=== PATIENT | male | born 1990 | race Caucasian/White ===

== ENCOUNTER 2019-02-27 19:00 | Emergency (ER) | payer SELFPAY ==
[2019-02-27 19:36] VITALS: BP 131/78
--- NOTE | 2019-02-27 20:05 | UC ---
Abdominal Pain Male HPI - HPI Summary HPI Summary: 2 DAYS OF INTERMITTENT LOWER ABDOMINAL PAIN. YESTERDAY NOTED SOME BLOODY MUCUS PER RECTUM. NO DIARRHEA. NO NAUSEA/VOMITING. NO FEVER. NO RECENT TRAVEL OR UNUSUAL FOODS. - History of Current Complaint Chief Complaint: UCGI Stated Complaint: ABDOMINAL PAIN Time Seen by Provider: 02/27/19 19:36 Hx Obtained From: Patient Onset/Duration: Gradual Onset, Lasting Days, Still Present Timing: Constant Severity Initially: Moderate Severity Currently: Moderate Pain Intensity: 2 Pain Scale Used: 0-10 Numeric Location: Suprapubic Radiates: No Character: Cramping, Sharp Aggravating Factor(s): Nothing Associated Signs And Symptoms: Positive: Constipation, Blood in Stool. Negative : Fever, Urinary Symptoms, Nausea, Vomiting - Allergies/Home Medications Allergies/Adverse Reactions: Allergies Allergy/AdvReac Type Severity Reaction Status Date / Time No Known Allergies Allergy Verified 01/15/15 23:10 Home Medications: Home Medications Docusate Sodium 100 mg PO ONCE PRN 02/27/19 [History Confirmed 02/27/19] PMH/Surg Hx/FS Hx/Imm Hx GI/ History: Kidney Stones - Surgical History Surgical History: Yes Surgery Procedure, Year, and Place: HERNIA REPAIR. appendicitis - Family History Known Family History: Positive: Non-Contributory - Social History Alcohol Use: Occasionally Substance Use Type: None Smoking Status (MU): Never Smoked Tobacco Review of Systems All Other Systems Reviewed And Are Negative: Yes Constitutional: Positive: Negative Respiratory: Positive: Negative Cardiovascular: Positive: Negative Gastrointestinal: Positive: Abdominal Pain, Other - BLOODY MUCUS PER RECTUM Genitourinary: Positive: Negative Physical Exam Triage Information Reviewed: Yes Appearance: Well-Appearing, No Pain Distress, Well-Nourished Vital Signs: Initial Vital Signs Temp 99.9 F 02/27/19 19:23 Pulse 72 02/27/19 19:23 Resp 18 02/27/19 19:23 BP 131/78 02/27/19 19:23 Pulse Ox 98 02/27/19 19:23 Vital Signs Reviewed: Yes Eyes: Positive: Conjunctiva Clear ENT: Positive: Hearing grossly normal Neck: Positive: Supple Respiratory Exam: Normal Cardiovascular Exam: Normal Abdomen Description: Positive: Soft, Other: - TTP LOWER ABDOMEN. NO REBOUND OR RIGIDITY. Negative: CVA Tenderness (R), CVA Tenderness (L), Distended, Guarding Bowel Sounds: Positive: Present Musculoskeletal: Positive: No Edema Neurological: Positive: Alert Psychological: Positive: Age Appropriate Behavior Skin: Negative: Rashes Abd Pain Male Course/Dx - Course Course Of Treatment: PT PRESENTS WITH 2 DAYS OF BLOODY MUCUS PER RECTUM AND LOWER ABDOMINAL PAIN. NO FEVER, NAUSEA/VOMITING. PATIENT REQUIRES MORE RESOURCES THAN WHAT IS AVAILABLE HERE IN THE UC. WILL GO [place] [facility] [place] [facility] BY PRIVATE CAR. PT OFFERED TRANSPORT TO THE ED BY AMBULANCE BUT DECLINES. ADVISED THAT BY NOT TRAVELING IN A MONITORED SETTING HE COULD BE RISKING WORSENING OF HIS CONDITION THAT COULD POSE A THREAT TO HIS LIFE, HEALTH AND MEDICAL SAFETY. HE VERBALIZES UNDERSTANDING AND CONTINUES TO DECLINE AMBULANCE TRANSFER. - Differential Dx/Clinical Impression Provider Diagnosis: Blood per rectum Discharge - Sign-Out/Discharge Documenting (check all that apply): Patient Departure All imaging exams completed and their final reports reviewed: No Studies - Discharge Plan Condition: Stable Disposition: TRANS HIGHER LVL OF CARE FAC Patient Education Materials: Abdominal Pain (ED) Referrals: Amanda Deshpande NP [Primary Care Provider] - If Needed Additional Instructions: GO DIRECTLY TO THE [facility] [place] FROM HERE FOR FURTHER EVALUATION. YOU HAVE DECLINED TRANSFER TO THE ED BY AMBULANCE. BE ADVISED THAT BY NOT TRAVELING IN A MONITORED SETTING YOU COULD BE RISKING WORSENING OF YOUR CONDITION THAT COULD POSE A THREAT TO YOUR LIFE, HEALTH AND MEDICAL SAFETY. - Billing Disposition and Condition Condition: STABLE Disposition: Trans Higher Lvl of Care Fac
== END 2019-02-27 19:59 | disposition short-term general hospital (02) ==
LOC: UCEAST 19:00
DX: K62.5 Hemorrhage of anus and rectum (principal); R10.30 Lower abdominal pain, unspecified
CPT/HCPCS: 99212; G0463

== ENCOUNTER 2019-02-27 20:11 | Emergency (ER) | payer OTHER ==
[2019-02-27] MEDS ORDERED: NS 0.9% 1000 ML** 1,000 ML IV ONE (20:45)
--- NOTE | 2019-02-27 20:52 | ED ---
GI/ HPI - HPI Summary HPI Summary: 29 year old male presents with abdominal pain for past couple days. He has crampy lower abdominal pain that comes and goes. He feels like he has to have a bowel movement and is unable to. He states he has been passing mucous and some bloody stool. He states it is like streaks of blood in it. He has never had this before. He denies any history of hemorrhoids. He denies any nausea vomiting. Has had his appendix removed. Has no medical conditions. has not tried anything for his symptoms. - History of Current Complaint Chief Complaint: EDAbdPain Time Seen by Provider: 02/27/19 20:23 Stated Complaint: ABD PAIN PER PT Pain Intensity: 4 - Allergy/Home Medications Allergies/Adverse Reactions: Allergies Allergy/AdvReac Type Severity Reaction Status Date / Time shrimp Allergy Stomach Verified 02/27/19 20:16 Cramps PMH/Surg Hx/FS Hx/Imm Hx Endocrine/Hematology History: Denies: Hx Diabetes Cardiovascular History: Denies: Hx Congestive Heart Failure, Hx Hypertension History: Denies: Hx Renal Disease - Surgical History Surgery Procedure, Year, and Place: HERNIA REPAIR. appendicitis Infectious Disease History: No Infectious Disease History: Denies: Traveled Outside the [place] in Last 30 Days - Family History Known Family History: Positive: Non-Contributory - Social History Alcohol Use: Occasionally Substance Use Type: Reports: None Smoking Status (MU): Never Smoked Tobacco Review of Systems Negative: Fever Negative: Chest Pain Negative: Shortness Of Breath Positive: Abdominal Pain, Other - blood in stool. Negative: Vomiting, Diarrhea , Nausea All Other Systems Reviewed And Are Negative: Yes Physical Exam Triage Information Reviewed: Yes Vital Signs On Initial Exam: Initial Vitals Temp Pulse Resp BP Pulse Ox 98.5 F 78 16 132/104 98 02/27/19 20:12 02/27/19 20:12 02/27/19 20:12 02/27/19 20:12 02/27/19 20:12 Vital Signs Reviewed: Yes Appearance: Positive: Well-Appearing Skin: Positive: Warm, Dry Head/Face: Positive: Normal Head/Face Inspection Eyes: Positive: Normal, Conjunctiva Clear ENT: Positive: Pharynx normal Respiratory/Lung Sounds: Positive: Clear to Auscultation, Breath Sounds Present Cardiovascular: Positive: Normal, RRR Abdomen Description: Positive: Soft, Other: - tenderness lower abd, no blood on rectal, hemorrhoids present Bowel Sounds: Positive: Present Musculoskeletal: Positive: Normal Neurological: Positive: Normal Psychiatric: Positive: Normal Diagnostics - Vital Signs Vital Signs Temp Pulse Resp BP Pulse Ox 02/27/19 20:12 98.5 F 78 16 132/104 98 - Laboratory Result Diagrams: 02/27/19 20:50 02/27/19 20:50 Lab Statement: Any lab studies that have been ordered have been reviewed, and results considered in the medical decision making process. - CT abd CT Interpretation Completed By: Radiologist Summary of CT Findings: IMPRESSION: 1. The distal colon and rectum are collapsed which limits evaluation for. inflammatory change. No diverticulosis or other obvious bowel pathology. 2. No other acute CT pathology. Re-Evaluation - Re-Evaluation First Eval Re-Evaluation Time: 22:41 Change: Unchanged GIGU Course/Dx - Course Course Of Treatment: 29 year old male presents with abdominal pain for past couple days. He has crampy lower abdominal pain that comes and goes. He feels like he has to have a bowel movement and is unable to. He states he has been passing mucous and some bloody stool. He states it is like streaks of blood in it. He has never had this before. He denies any history of hemorrhoids. He denies any nausea vomiting. Has had his appendix removed. Has no medical conditions. has not tried anything for his symptoms. On exam has mild lower bowel pain. On rectal exam no blood noted. Does have a hemorrhoids noted. stool occult negative. wbc normal. crp normal. ct shows no acute findings. will prescribe miralax as symptoms likely due to constipation and hemorrhoids. patient understand and agrees with plan. - Diagnoses Differential Diagnoses - Male: Gastroenteritis (Bacterial), Gastroenteritis ( Viral), Urinary Tract Infection Provider Diagnoses: Abdominal pain, Hemorrhoids Discharge - Sign-Out/Discharge Documenting (check all that apply): Patient Departure Patient Received Moderate/Deep Sedation with Procedure: No - Discharge Plan Condition: Good Disposition: HOME Prescriptions: Polyethylene Glycol 3350* [Miralax*] 17 gm PO DAILY #7 packet Patient Education Materials: Acute Abdominal Pain (ED) Referrals: Amanda Deshpande NP [Primary Care Provider] - Additional Instructions: take miralax daily with 8 ounce of liquid increase fiber Take Tylenol as needed for pain every 6 hours Return to ED if develop any new or worsening symptoms - Billing Disposition and Condition Condition: GOOD Disposition: Home
[2019-02-27 21:15] LABS: ABS Eosinophils 0.5 10^3/ul (0-0.6); ABS Lymphocytes 1.6 10^3/ul (1.0-4.8); ABS Monocytes 0.9 10^3/ul (0-0.8); ABS Neutrophils 5.6 10^3/ul (1.5-7.7); Eosinophil % 5.4 %; Hematocrit 48 % (42-52); Hemoglobin 16.2 g/dL (14.0-18.0); Lymphocyte % 18.9 %; Mean Corpuscular HGB Conc 34 g/dL (31-36); Mean Corpuscular Hemoglobin 31 pg (27-31); Mean Corpuscular Volume 91 fL (80-94); Mean Platelet Volume 9.2 fL (7.4-10.4); Nucleated Red Blood Cells % 0.1; Platelet Count 183 10^3/uL (150-450); Red Cell Distribution Width 13 % (10-15); White Blood Count 8.7 10^3/uL (3.5-10.8)
[2019-02-27 21:26] LABS: Albumin 4.5 g/dL (3.2-5.2); Albumin/Globulin Ratio 1.9 (1-3); C Reactive Protein 5.68 mg/L (<8.01); Calcium 9.4 mg/dL (8.6-10.3); EGFR African American 106.2 (>60); EGFR Non-African American 87.7 (>60); Globulin 2.4 g/dL (2-4); Total Bilirubin 0.5 mg/dL (0.2-1.0); Total Protein 6.9 g/dL (6.4-8.9)
[2019-02-27] MEDS ORDERED: Iohexol 300* (CONTRAST) 10 ML SDV IV ONE (21:37)
[2019-02-28 01:22] VITALS: BP 124/78
[2019-02-28 01:26] LABS: Urine Appearance Clear; Urine Bilirubin Negative (Negative); Urine Blood Negative (Negative); Urine Color Yellow; Urine Glucose Negative (Negative); Urine Ketones 1+ (Negative); Urine Nitrite Negative (Negative); Urine Protein Negative (Negative); Urine Specific Gravity 1.015 (1.010-1.030); Urine Urobilinogen Negative (Negative)
== END 2019-02-28 01:22 | disposition home or self-care (01) ==
LOC: ED 20:11
DX: R10.9 Unspecified abdominal pain (principal); K64.9 Unspecified hemorrhoids; K92.1 Melena
CPT/HCPCS: 36415; 74177; 80053; 81003; 82272; 83605; 83690; 85025; 86140; 99282; Q9967